=== PATIENT | female | born 1950 | race Caucasian/White ===

== ENCOUNTER → 2016-12-29 | Outpatient (CLI) | payer MEDICARE ==
[~2016-12-29] MED LIST: ALLEGRA 180MG180 MG PO; CALCIUM ANTACI500 MG PO; COMBIGAN 0.2%-0.5 ML OU; NORCO 325 MG-51 TAB PO; PREDNISONE20 MG PO; ROBITUSSIN A-C S1 M1 PO; ROCALTROL0.5 MCG PO; RT ADVAIR 228 DISKUS IH; SINGULAIR 110 MG/TAB PO; SYNTHROID0.1 MG/TAB PO; VENTOLIN0.09 MG IH; ZPACK
== END ==
LOC: COL.RAD 13:47
DX: M50.122 Cervical disc disorder at C5-C6 level with radiculopathy (principal)